=== PATIENT | female | born 1940 | race Caucasian/White ===

== ENCOUNTER 2018-05-20 08:04 | Emergency (ER) | payer OTHER ==
[2018-05-20] MEDS ORDERED: Sodium Chloride 0.9% 10 ML Syringe FLUSH PRN (08:31)
[2018-05-20] MEDS ORDERED: Sodium Chloride 0.9% 1,000 ML IV STA (08:31)
[2018-05-20] MEDS ORDERED: Ondansetron 4 MG/2 ML SDV IVPUSH ONE (08:31)
[2018-05-20] MEDS ORDERED: HYDROmorphone 1 MG/ML Syringe IVPUSH ONE (08:32)
--- NOTE | 2018-05-20 08:52 | EDM.PDOC ---
ED HPI GENERAL MEDICAL PROBLEM - General Chief Complaint: Abdominal Pain Stated Complaint: NAUSEA/VOMITING/ABDOMINAL PAIN Time Seen by Provider: 05/20/18 08:18 Source of Information: Reports: Patient, Family History Limitations: Reports: No Limitations - History of Present Illness INITIAL COMMENTS - FREE TEXT/NARRATIVE: The patient presents with nausea, vomiting and abdominal pain for about 5 days. The pain radiates to her back. She also has some cramping in her legs at times. 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 She had her colon removed. She has diarrhea from that. She has no fever, chills, cough, congestion or runny nose. She has no chest pain or shortness of breath. She has no dysuria. She has not been around anyone who is sick or has eaten any bad food. Onset: Gradual Duration: Day(s): (5) Location: Reports: Abdomen Quality: Reports: Sharp Severity: Moderate Improves with: Reports: None Worsens with: Reports: None Associated Symptoms: Reports: Nausea/Vomiting. Denies: Chest Pain, Cough, Fever /Chills, Headaches, Shortness of Breath Upper Abdomen Pain Score (Numeric/FACES): 6 - Related Data Allergies Allergy/AdvReac Type Severity Reaction Status Date / Time No Known Allergies Allergy Verified 05/20/18 08:24 Home Meds: Home Meds Alendronate Sodium [Fosamax] 70 mg PO WEEKLY 05/20/18 [History] Ramipril [Altace] 5 mg PO DAILY 05/20/18 [History] Past Medical History HEENT History: Reports: Cataract, Impaired Vision Cardiovascular History: Reports: Hypertension BOTTLE FILLER History: Reports: Endocrine/Metabolic History: Reports: Osteopenia, Osteoporosis - Past Surgical History GI Surgical History: Reports: Appendectomy, Hernia, Inguinal Other GI Surgeries/Procedures: illeostomy Female Surgical History: Reports: Section Musculoskeletal Surgical History: Reports: Hip Replacement Social & Family History - Tobacco Use Smoking Status *Q: Never Smoker - Caffeine Use Caffeine Use: Reports: None - Recreational Drug Use Recreational Drug Use: No ED ROS GENERAL - Review of Systems Review Of Systems: See Below Constitutional: Reports: No Symptoms HEENT: Reports: No Symptoms Respiratory: Reports: No Symptoms Cardiovascular: Reports: No Symptoms Endocrine: Reports: No Symptoms GI/Abdominal: Reports: Abdominal Pain, Diarrhea, Nausea, Vomiting : Reports: No Symptoms Musculoskeletal: Reports: No Symptoms ED EXAM, GI/ABD - Physical Exam Exam: See Below Exam Limited By: No Limitations General Appearance: Alert, No Apparent Distress Ears: Normal External Exam Nose: Normal Inspection Head: Atraumatic, Normocephalic Neck: Normal Inspection Respiratory/Chest: No Respiratory Distress, Lungs Clear, Normal Breath Sounds Cardiovascular: Regular Rate, Rhythm, No Edema, No Murmur GI/Abdominal Exam: Soft, No Organomegaly, No Mass, Tender (Moderate tenderness to her right abdomen and upper abdomen) Course - Vital Signs Last Recorded V/S: Last Vital Signs Temp 97.2 F 05/20/18 08:17 Pulse 84 05/20/18 08:17 Resp 13 05/20/18 08:17 BP 112/77 05/20/18 08:17 Pulse Ox 100 05/20/18 08:17 - Orders/Labs/Meds Orders: Active Orders 24 hr Category Date Time Status Peripheral IV Care [RC] . DIRECTED Care 05/20/18 08:31 Active Urinary Catheter Assessment [RC] ASDIRECTED Care 05/20/18 11:09 Active Urinary Catheter Insertion [Insert Urinary Catheter] [ Care 05/20/18 10:40 Ordered OM.PC] Stat Piperacillin/Tazobactam [Piperacil-Tazobact] 4.5 gm Med 05/20/18 12:00 Ordered Sodium Chloride 0.9% [Normal Saline] 100 ml IV Q8H Sodium Chloride 0.9% [Saline Flush] Med 05/20/18 08:31 Active 10 ml FLUSH ASDIRECTED PRN ED Antiemetic Medication Reflex [OM.PC] Stat Oth 05/20/18 08:31 Ordered Peripheral IV Insertion Adult [OM.PC] Stat Oth 05/20/18 08:31 Ordered Medication Orders Sodium Chloride (Saline Flush) 10 ml FLUSH ASDIRECTED PRN PRN Reason: Keep Vein Open Last Admin: 05/20/18 08:49 Dose: 10 ml Labs: Laboratory Tests 05/20/18 05/20/18 05/20/18 Range/Units 08:40 08:40 10:49 WBC 18.82 H (3.98-10.04) K/mm3 RBC 5.70 H (3.98-5.22) M/mm3 Hgb 15.3 (11.2-15.7) gm/L Hct 45.6 H (34.1-44.9) % MCV 80.0 (79.4-94.8) fl MCH 26.8 (25.6-32.2) pg MCHC 33.6 (32.2-35.5) g/dl RDW Std Deviation 43.6 (36.4-46.3) fL Plt Count 555 H (182-369) K/mm3 MPV 11.0 (9.4-12.3) fl Neut % (Auto) 86.3 H (34.0-71.1) % Lymph % (Auto) 5.4 L (19.3-51.7) % [place] % (Auto) 7.3 (4.7-12.5) % Eos % (Auto) 0.5 L (0.7-5.8) Baso % (Auto) 0.1 (0.1-1.2) % Neut # (Auto) 16.25 H (1.56-6.13) K/mm3 Lymph # (Auto) 1.02 L (1.18-3.74) K/mm3 [place] # (Auto) 1.37 H (0.24-0.36) K/mm3 Eos # (Auto) 0.09 (0.04-0.36) K/mm3 Baso # (Auto) 0.02 (0.01-0.08) K/mm3 Manual Slide Review Normal smear Sodium 129 L (136-145) mEq/L Potassium 5.1 (3.5-5.1) mEq/L Chloride 92 L (98-107) mEq/L Carbon Dioxide 14 L (21-32) mEq/L Anion Gap 28.1 H (5-15) BUN 100 H (7-18) mg/dL Creatinine 6.6 H (0.55-1.02) mg/dL Est Cr Clr Drug Dosing 5.38 mL/min Estimated GFR (MDRD) 6 (>60) mL/min BUN/Creatinine Ratio 15.2 (14-18) Glucose 127 H (83-115) mg/dL Calcium 9.1 (8.5-10.1) mg/dL Total Bilirubin 0.5 (0.2-1.0) mg/dL AST 20 (15-37) U/L ALT 41 (14-59) U/L Alkaline Phosphatase 129 H (46-116) U/L Total Protein 9.6 H (6.4-8.2) g/dl Albumin 4.5 (3.4-5.0) g/dl Globulin 5.1 gm/dL Albumin/Globulin Ratio 0.9 L (1-2) Lipase 155 (73-393) U/L Urine Color Dark yellow (Yellow) Urine Appearance Slt cloudy H (Clear) Urine pH 5.5 (5.0-8.0) Ur Specific [place] > or = 1.030 (1.005-1.030) Urine Protein 2+ H (Negative) Urine Glucose (UA) Negative (Negative) Urine Ketones Negative (Negative) Urine Occult Blood 1+ H (Negative) Urine Nitrite Negative (Negative) Urine Bilirubin Negative (Negative) Urine Urobilinogen 0.2 (0.2-1.0) Ur Leukocyte Esterase Negative (Negative) Urine RBC 0-5 (0-5) /hpf Urine WBC 0-5 (0-5) /hpf Ur Epithelial Cells 0-5 (0-5) /hpf Urine Bacteria Moderate H (FEW) /hpf Fine Granular Casts 5-10 H (0-5) /lpf Urine Mucus Moderate H (FEW) /hpf Meds: Medications Generic Name Dose Route Start Last Admin Trade Name Freq PRN Reason Stop Dose Admin Sodium Chloride 10 ml 05/20/18 08:31 05/20/18 08:49 Saline Flush FLUSH 10 ml ASDIRECTED PRN Administration Keep Vein Open Discontinued Medications Generic Name Dose Route Start Last Admin Trade Name Theresa PRN Reason Stop Dose Admin Diatrizoate Meglum/Diatrizoate Sod 90 ml 05/20/18 09:45 05/20/18 09:59 Gastrografin 37% PO 05/20/18 09:46 90 ml ONETIME ONE Administration Hydromorphone HCl 0.5 mg 05/20/18 08:32 05/20/18 08:49 Dilaudid IVPUSH 05/20/18 08:33 0.5 mg ONETIME ONE Administration Sodium Chloride 1,000 mls @ 1,000 mls/hr 05/20/18 08:31 05/20/18 08:48 Normal Saline IV 05/20/18 09:30 1,000 mls/hr .BOLUS STA Administration Sodium Chloride 500 mls @ 500 mls/hr 05/20/18 10:04 05/20/18 10:06 Normal Saline IV 05/20/18 11:03 500 mls/hr .BOLUS ONE Administration Ondansetron HCl 4 mg 05/20/18 08:31 05/20/18 08:48 Zofran IVPUSH 05/20/18 08:32 4 mg ONETIME ONE Administration - Re-Assessments/Exams Free Text/Narrative Re-Assessment/Exam: 05/20/18 08:56 I ordered an IV NS 1L bolus, zofran 4mg IV, dilaudid 0.5mg IV, labs, UA and a CT of her abdomen and pelvis. 05/20/18 09:51 Her WBC was elevated at 18.82. Her platelets were elevated at 555. Her Na was low at 129. Her potassium was normal at 5.1. Her anion gap was elevated at 28.1. Her BUN was elevated at 100. Her creatinine is elevated at 6.6. Her GFR was low at 6. She has not urinated in a couple days. She does not remember having trouble with her kidneys in the past. Her daughter is a nurse and she does not recall the patient having trouble with her kidneys. Her glucose was elevated at 127. Her alk phos was elevated at 129 with normal liver enzymes. Her lipase was normal. I have canceled the IV contrast for the CT and we will jut use oral contrast. 05/20/18 11:45 Her UA shows no UTI. I talked with Dr Juarez and he felt she needed to go to [place]. I will call MATTHEW Prakash in [place]. 05/20/18 12:01 I talked to the hospitalist in [place] Dr Meneses. He accepted her and he wanted her to have some zosyn and more fluids. Departure - Departure Time of Disposition: 12:10 Disposition: DC/Tfer to Acute Hospital 02 Condition: Serious Clinical Impression: Gastroenteritis, Dehydration, Hyponatremia Renal failure, acute Qualifiers: Acute renal failure type: unspecified Qualified Code(s): N17.9 - Acute kidney failure, unspecified - Discharge Information Referrals: PCP,None [Primary Care Provider] - Forms: ED Department Discharge - My Orders Last 24 Hours: My Active Orders 05/20/18 08:31 Peripheral IV Care [RC] . DIRECTED Sodium Chloride 0.9% [Saline Flush] 10 ml FLUSH ASDIRECTED PRN ED Antiemetic Medication Reflex [OM.PC] Stat Peripheral IV Insertion Adult [OM.PC] Stat 05/20/18 10:40 Urinary Catheter Insertion [Insert Urinary Catheter] [OM.PC] Stat 05/20/18 11:09 Urinary Catheter Assessment [RC] ASDIRECTED 05/20/18 12:00 Piperacillin/Tazobactam [Piperacil-Tazobact] 4.5 gm Sodium Chloride 0.9% [ Normal Saline] 100 ml IV Q8H - Assessment/Plan Last 24 Hours: My Active Orders 05/20/18 08:31 Peripheral IV Care [RC] . DIRECTED Sodium Chloride 0.9% [Saline Flush] 10 ml FLUSH ASDIRECTED PRN ED Antiemetic Medication Reflex [OM.PC] Stat Peripheral IV Insertion Adult [OM.PC] Stat 05/20/18 10:40 Urinary Catheter Insertion [Insert Urinary Catheter] [OM.PC] Stat 05/20/18 11:09 Urinary Catheter Assessment [RC] ASDIRECTED 05/20/18 12:00 Piperacillin/Tazobactam [Piperacil-Tazobact] 4.5 gm Sodium Chloride 0.9% [ Normal Saline] 100 ml IV Q8H
[2018-05-20] MEDS ORDERED: Diatrizoate Meglumine/Diatrizoate Sodium 37% 120 ML Bottle PO ONE (09:45)
[2018-05-20] MEDS ORDERED: Sodium Chloride 0.9% 500 ML IV ONE (10:04)
--- NOTE | 2018-05-20 10:26 | CT ---
CT abdomen and pelvis Technique: Multiple axial sections were obtained from above the dome of the diaphragm inferiorly through the pubic symphysis. Intravenous contrast not utilized. Oral contrast has been given. Comparison: No prior abdominal imaging. Findings: Small low-density finding is seen within the left lobe of the liver measuring 9 mm having Hounsfield unit measurements of a simple cyst. Two additional findings are seen within the right lobe of the liver also having Hounsfield unit measurements of cysts measuring 1.1 cm in size and 5 mm in size. Small portion of the visualized lung bases show slight scarring with nothing acute. Spleen appears within normal limits. Adrenal glands show no nodule. Cyst is noted within the upper right kidney measuring 2.0 cm. Kidneys are otherwise unremarkable. Pancreas shows no discrete abnormality. Aorta shows diffuse atherosclerotic calcification without aneurysm. Atherosclerotic calcification continues into the iliac vessels. Ileostomy noted within the right lower abdomen which appears within normal limits. Anterior abdominal wall hernia is seen which contains loops of small bowel as well as portion of the body of the stomach. This causes no bowel obstruction. Hernia opening measures approximately 9.4 cm. No retroperitoneal adenopathy or mesenteric abnormalities are seen. Small fat-containing left femoral hernia is noted. No pelvic mass or adenopathy is seen. Artifact noted within the pelvis from right hip prosthesis. Bone window settings were reviewed which show scattered degenerative change throughout the spine. Impression: 1. Anterior abdominal wall hernia containing stomach and small bowel loops. Hernia causes no bowel obstruction. Fat-containing left femoral hernia also noted. 2. Ileostomy is noted within the right lower abdomen. 3. Cysts within the liver and right kidney. Other incidental findings. Nothing acute is appreciated. Diagnostic code #3
[2018-05-20] MEDS ORDERED: Piperacillin/Tazobactam 4.5 GM in Sodium Chloride 0.9% 100 ML IV SCH (12:00)
[2018-05-20] MEDS ORDERED: Lactated Ringers 1,000 ML IV SCH (12:15)
== END 2018-05-20 13:14 ==
LOC: JD.ED 08:04
DX: K52.9 Noninfective gastroenteritis and colitis, unspecified (principal); E86.0 Dehydration; E87.1 Hypo-osmolality and hyponatremia; N17.9 Acute kidney failure, unspecified; I10 Essential (primary) hypertension
CPT/HCPCS: 36415; 74177; 80053; 81001; 83690; 85025; 96361; 96365; 96375; 99285; J1170; J2405; J2543; J7030; J7040; J7120; Q9963; 74176; 74176-26; 99284